=== PATIENT | female | born 1990 | race Two or more races ===

== ENCOUNTER 2024-08-08 15:25 | Emergency (ER) | payer MEDICAID, SELFPAY ==
[2024-08-08 15:31] VITALS: BP 158/73; PULSE 104; RESP 17; TEMP 36.8; O2SAT 96
--- NOTE | 2024-08-08 15:38 | EDNOTE_ITS ---
Nausea/Vomit./Diarrhea-RME/HPI General Chief complaint: Abdominal Pain Stated complaint: ABDOMINAL PAIN Time Seen by Provider: 08/08/24 15:27 Arrival date/time: 08/08/24 15:25 RME / HPI RME / HPI Narrative: DR. ROSAS MAIN ED EVALUATION: 34 year old female with past medical history significant for x2 sections presents to the Emergency Department with complaints of nausea, vomiting, left flank pain and suprapubic pain that radiates down to her groin area. Pain is rated severe and described as aching. Patient also reports that she has some vaginal bleed, no rectal bleed. Related Data Allergies Allergy/AdvReac Type Severity Reaction Status Date / Time No Known Allergies Allergy Verified 08/08/24 15:54 Review of Systems Review of Systems Systems Reviewed: All systems reviewed, normal except as documented Narrative Review of Systems: GEN: No fever, no chills, no weight loss EYES: No discharge, no visual changes, no pain HEENT: No ear pain, no congestion, no sore throat PULM: No shortness of breath, no cough, no congestion CV: No chest pain, no dyspnea on exertion, no palpitations GI: + nausea, + vomiting, no diarrhea, + left flank pain, + suprapubic pain, no constipation + vaginal bleed : No frequency, no urgency and no dysuria MUSC/SKEL: No joint pain, no back pain SKIN: No rash PSYCH: No hallucinations, no depression HEME/LYMPH: No easy bleeding or bruising tendencies NEURO: No weakness, no headache Past Medical History Surgical History SURGICAL: Positive Section (x2) Social History SMOKING STATUS: Never smoker SUBSTANCE USE: does not use ALCOHOL: Never ED Exam Narrative Physical exam: Physical Exam: General: The vital signs were reviewed. Patient is actively vomiting in the ambulance bay writhing on the side of the ambulance bay gurney uncomfortable does not want to sit down later she is in room 19 doing the same thing she appears nauseated and in severe pain. The patient is non-toxic, in no apparent distress and appears healthy with a patent airway, no respiratory distress and has no apparen t circulatory problems. Head & Scalp: Normocephalic, atraumatic. Face: Appears normal and is without lesions, deformity. Ears: Left external pinna appears normal. Right external pinna appears normal. Eyes: The sclera is anicteric. No obvious photophobia. The Left and Right Orbit/Lid/Conjunctiva appears normal without swelling, discoloration or injection. Nose: The nose is without deformity, discharge or tenderness; Throat: Appears normal. The mucous membranes are pink and moist without exudates, redness or mass seen. The tongue appears normal. Neck: The neck is supple and no apparent mass or adenopathy. Chest: The chest wall is normal in size and symmetry and has no chest wall tenderness or crepitus. The patient displays normal ventilator effort without retractions, accessory muscle use and has adequate air movement bilaterally with no wheezes and no rales. Cardiovascular: Regular rate and rhythm; No murmurs, rubs, or gallops; Gastrointestinal: The abdomen appears normal. No obvious hernias or mass. The abdomen is soft and benign, non-distended, with no pain, no guarding and no rebound tenderness. Bowel sounds are present and normal sounding. No CVA tenderness. Genitourinary: Back/Spine: Normal inspection Extremities/Musculoskeletal/lymphatic: The bilateral upper and lower extremities are warm. There is no evidence of arterial insufficiency. There is no evidence of venous insufficiency/edema. The patient spontaneously moves bilateral upper and lower extremities with no pain and no limitation of movement. There is no apparent, injury or trauma. Skin: The skin is warm, dry and intact. No rashes. No petechia. No purpura. No abnormal bruising. The color is appropriate with no cyanosis. Mental status/Psychiatric: Mental status is appropriate for age. The patient has no apparent delusions, visual hallucinations, no apparent audible hallucinations. The patient has no apparent suicidal thoughts/ideation and no apparent homicidal thoughts/ideation. Neurological: The patient is awake, alert, interactive, cordial, cooperative and is oriented to name and situation. The patient follows commands and answers historical question with no impairment. There is no visual disturbance apparent. The pupils are equal and reactive bilaterally with normal eye movements and no diplopia The bilateral upper and lower extremities have normal strength, normal range of motion and normal functioning. The gait, station and balance appear to be baseline with no acute change Course Quality Measures none Orders Category Date Time Status NPO NEEDED Care 08/08/24 15:28 Active NPO NOW Care 08/08/24 15:28 Active Diet NPO (NOW) Diet 08/08/24 15:[address] abdomen pelvis wo con Stat Exams 08/08/24 17:56 Ordered B-Type Natriuretic Peptide Stat Lab 08/08/24 15:39 Completed CBC Stat Lab 08/08/24 15:39 Completed Comprehensive Metabolic Panel Stat Lab 08/08/24 15:39 Completed HCG Qualitative,Urine Stat Lab 08/08/24 16:10 Completed Lactate (Lactic Acid) Stat Lab 08/08/24 15:39 Completed Lipase Stat Lab 08/08/24 15:39 Completed Troponin I Stat Lab 08/08/24 15:39 Completed Urinalysis Stat Lab 08/08/24 16:10 Completed Urinalysis, C/S if Indicated Stat Lab 08/08/24 16:10 Completed Urine Culture Stat Lab 08/08/24 16:10 Received Ketorolac Inj [Toradol Inj] Med 08/08/24 16:45 Discontinued 30 mg IVP X1 ONE Metoclopramide Inj [Reglan Inj] Med 08/08/24 17:39 Discontinued 10 mg IVP X1 ONE Morphine Inj Med 08/08/24 17:39 Discontinued 4 mg IVP X1 ONE Ondansetron Inj [Zofran Inj] Med 08/08/24 15:28 Discontinued 4 mg IV X1 ONE Sodium Chloride 0.9% 1000 ml [Ns] 2,000 ml Med 08/08/24 15:28 Discontinued IV 2,000 mls/hr Vital Signs Vital signs: Vital Signs Temperature 98.2 F 08/08/24 15:31 Pulse Rate 104 H 08/08/24 15:31 Respiratory Rate 17 08/08/24 15:31 Blood Pressure 158/73 H 08/08/24 15:31 Pulse Oximetry (%) 96 08/08/24 15:31 Oxygen Delivery Method Room Air 08/08/24 15:31 Nausea/Vomiting/Diarrhea MDM Narrative MDM Narrative:: I, Ria Bolanos am scribing for and in the presence of Dr. Rosas. Patient presents with severe pain flank pain but also complains of mid abdominal pain and writhing of vomiting. And to be EMS she reported left flank pain later on she reports pain over her recent section scar uncertain how to relate these 2 together. Medical workup reveals urinalysis revealed 1253 red cells 54 white cells with a specific area of 1026 CHEM panel reveals sodium 142 potassium 4.0 chloride 107 CO2 23.9 BUN 12 creatinine 0.9 anion gap is normal at 11 lactic acid was 1.8 AST ALT and bilirubin was normal. Troponin and BNP were negative. White cell count came back at 12.2 hemoglobin of 13.1 MCV of 76 consistent with a microcytic indices. Patient sounds like it looks like she has a kidney stone uncertain what the previous scar discomfort is from but she says that it has been there for a while. Will get a noncontrast CT of her abdomen. Patient be signed out to the oncoming doctor at 1800 hrs. to follow-up on the CT and dispo accordingly. Patient data External records reviewed:: EMS form Clinical information provided by:: patient and EMS Social determinants that could affect healthcare access:: none Patient has the following chronic illnesses:: x2 sections How is presenting disease/condition affected by chronic disease/condition?: exacerbated by Evaluation data The following diagnostics were reviewed and interpreted by me:: lab results Lab and/or radiology exams considered but not ordered:: none Interpretation Summary: See above under MDM narrative. Medications / Prescriptions Medications / Prescriptions considered but not ordered:: none Medication administrations:: Medication Administration History Discontinued Medications Sodium Chloride (Ns) 2,000 mls @ 2,000 mls/hr IV .Q1H ONE Stop: 08/08/24 16:27 Last Infusion: 08/08/24 17:31 Dose: Infused Documented By: Admin: 08/08/24 16:26 Dose: 2,000 mls/hr Documented By: CHADD Ketorolac Tromethamine (Ketorolac Inj 30 Mg/Ml Vial) 30 mg IVP X1 ONE Stop: 08/08/24 16:46 Last Admin: 08/08/24 16:56 Dose: 30 mg Documented By: JOSEPH Metoclopramide HCl (Metoclopramide Inj 5 Mg/Ml Vial 2 Ml) 10 mg IVP X1 ONE; Protocol Stop: 08/08/24 17:40 Last Admin: 08/08/24 17:53 Dose: 10 mg Documented By: JOSEPH Morphine Sulfate (Morphine Sulf Inj 10 Mg/Ml Vial) 4 mg IVP X1 ONE Stop: 08/08/24 17:40 Last Admin: 08/08/24 17:54 Dose: 4 mg Documented By: JOSEPH Ondansetron HCl (Ondansetron Inj 2 Mg/Ml Inj 2 Ml) 4 mg IV X1 ONE; Protocol Stop: 08/08/24 15:29 Last Admin: 08/08/24 16:26 Dose: 4 mg Documented By: CHADD see above Consultations Consultation(s) initiated? (list below): No Diagnosis Nausea Differential Diagnosis: gastroenteritis, dehydration and other (abdominal pain) Most likely diagnosis given after review of the tests above:: Hematuria severe left flank pain most likely a renal stone. Patient also has some complaint of midline abdominal pain related to her previous scar from 2 months ago uncertain if that means anything as it is apparently 2 months old care to the oncoming doctor. Admission Indicated Admission indicated?: not indicated Admission Request Was there a request for admission?: No Disposition Plan Disposition Plan: other (specify) (Pending final disposition) Discharge Plan Prescriptions/Referrals Referrals: Aneesh Cantrell MD [Primary Care Provider] - In 1 week Problem List Clinical Impression: Acute left flank pain, Nausea & vomiting, Hematuria Patient/Caregiver Discharge Instructions Print Language: Cameroonian
[2024-08-08 15:48] VITALS: PULSE 84; RESP 20; O2SAT 98
[2024-08-08 15:50] LABS: Lactate (Lactic Acid) 1.8 mMol/L (0.4-2.0)
[2024-08-08 15:52] VITALS: BMI 41.3
[2024-08-08 15:54] LABS: Basophils % (Auto) 0 % (0-2.5); Eosinophils # (Auto) 0.1 Thou/mm3 (0.0-0.5); Eosinophils % (Auto) 1 % (0-10); Hematocrit 37.8 % (36.0-46.0); Hemoglobin 13.1 g/dL (12.0-16.0); Immature Granulocytes % (Auto) 0 % (0-0); Immature Granulocytes Auto 0.05 Thou/mm3 (0.00-0.00); Lymphocytes # (Auto) 2.1 Thou/mm3 (1.0-4.8); Lymphocytes % (Auto) 17 % (10-50); Mean Corpuscular HGB Conc 34.7 g/dl (31.0-37.0); Mean Corpuscular Hemoglobin 26.3 pg (25.0-35.0); Mean Corpuscular Volume 76 fL (80-100); Monocytes # (Auto) 0.6 Thou/mm3 (0.0-0.8); Monocytes % (Auto) 5 % (0-12); Neutrophils # (Auto) 9.4 Thou/mm3 (1.8-7.7); Neutrophils % (Auto) 77 % (37-80); Nucleated Red Blood Cell % 0 /100 WBC (0); Platelet Count 209 Thou/mm3 (140-440); RDW Standard Deviation 53.1 fL (36.4-46.3); Red Blood Count 4.99 Miln/mm3 (4.00-5.20); White Blood Count 12.2 Thou/mm3 (3.6-11.0)
--- NOTE | 2024-08-08 16:18 | PC.NURSE ---
patient requesting pain medication for 10/10 pain to left flank and lower abd. Dr. Garcia made aware, no new orders received.
[2024-08-08 16:20] VITALS: BP 160/103; PULSE 86; RESP 18; TEMP 37.2; O2SAT 99
[2024-08-08 16:21] LABS: B-Type Natriuretic Peptide < 20 pg/mL (0-100)
[2024-08-08 16:22] LABS: Alanine Aminotransferase 31 U/L (10-49); Albumin, Serum 5.1 gm/dL (3.5-5.0); Albumin/Globulin Ratio 1.8 (1.2-2.2); Alkaline Phosphatase 128 U/L (46-116); Anion Gap 11 (7-16); Aspartate Amino Transferase 25 U/L (0-34); BUN/Creatinine Ratio 13 Ratio (12-20); Bilirubin,Total 0.4 mg/dL (0.3-1.2); Blood Urea Nitrogen 12 mg/dL (9-23); Calcium 9.2 mg/dL (8.3-10.6); Calcium (Corrected) 9.2 mg/dL (8.5-10.1); Carbon Dioxide 23.7 mMol/L (20.0-31.0); Chloride 107 mMol/L (98-107); Creatinine (Component) 0.9 mg/dL (0.6-1.3); Estimated Creatinine Clearance 73.9 mL/min (>60); Globulin 2.8 gm/dL (2.3-3.5); Glucose 141 mg/dL (74-106); Lipase 31 U/L (12-53); Osmolality,Calculated 284 (275-295); Sodium 142 mMol/L (136-145); Total Protein 7.9 gm/dL (5.7-8.2); Troponin I < 0.002 ng/mL (0.0-0.045); eGFR > 60 See Note
[2024-08-08] MEDS: SODIUM CHLORIDE 0.9% 1000 ML 2,000 ML 2000 ML IV (16:26)
[2024-08-08] MEDS: ONDANSETRON INJ 2 MG/ML INJ 2 ML 4 MG IV (16:26)
[2024-08-08 16:36] LABS: Collection Type, Urine Catheter
[2024-08-08 16:55] LABS: HCG Qualitative,Urine Negative
[2024-08-08] MEDS: KETOROLAC INJ 30 MG/ML VIAL IVP (16:56)
[2024-08-08 17:17] LABS: Bacteria,Urine Rare; Bilirubin,Urine Negative (Negative); Blood,Urine 3+ (Negative); Color,Urine Yellow (Lt Yel-Yel); Glucose, Urine Negative (Negative); Ketones,Urine Negative (Negative); Leukocyte Esterase,Urine Positive (Negative); Nitrite,Urine Positive (Negative); PH,Urine 6.5 (5.0-7.0); Protein,Urine 1+ (Neg - Trace); RBC,Urine 1253 /hpf (0-3); Specific Gravity,Urine 1.026 (1.001-1.035); Squamous Epithelial Cell,Urine 2 /hpf (0-5); Urobilinogen,Urine Negative mg/dL (0.0-1.0); WBC,Urine 54 /hpf (0-5)
[2024-08-08 17:19] LABS: Clarity,Urine Hazy (Clear/Hazy); Culture Indicated,Urine Yes
--- NOTE | 2024-08-08 17:39 | PC.NURSE ---
Received verbal order for 10mg Reglan IV and 4 mg morphine IV
[2024-08-08] MEDS: METOCLOPRAMIDE INJ 5 MG/ML VIAL 2 ML 10 MG IVP (17:53)
[2024-08-08] MEDS: MORPHINE SULF INJ 10 MG/ML VIAL 4 MG IVP (17:54)
--- NOTE | 2024-08-08 17:56 | XR_ITS ---
Examination: CT abdomen and pelvis without contrast. Coronal 3-D reconstructions. Sagittal 2-D reconstructions. Date and time of exam:August 08, 2024 1832 hours INDICATIONS: Onset left flank pain and hematuria today CTDI: vol (mGy): 6.99 DLP: (mGycm): 350 Technique: Axial images of the abdomen have been obtained, 3 mm slice thickness Intravenous contrast material has not been administered. Low dose protocols were performed. One or more of the following dose reduction techniques were used; automated exposure control, adjustment of the mA and/or KV according to patient size, use of iterative reconstruction technique. Findings: No focal liver or splenic lesions No gallstones No pancreatic mass Moderate left hydronephrosis secondary to 3 mm and 6 mm distal left ureteral calculi No bowel obstruction Normal appendix No bladder mass or bladder calculi, minimal thickening of gallbladder wall Moderate osteopenia IMPRESSION: Moderate left hydronephrosis secondary to 3 mm, 6 mm distal left ureteral calculi
[2024-08-08 18:12] VITALS: BP 134/83; PULSE 96; RESP 18; TEMP 37.8; O2SAT 100
--- NOTE | 2024-08-08 18:42 | EDNOTE_ITS ---
Emergency Room Addendum <Brina Ferguson - Last Filed: 08/08/24 21:29> Addendum Narrative: 1800: Care assumed from Dr. Garcia (emergency physician). Past medical, surgical, social and family history reviewed. Vitals and home medications reviewed. Results and treatment plan discussed. I will assume the care of the patient at this time and will follow the patient, pending abdomen/pelvis CT w/o contrast. Please refer to the emergency department record for history and examination. Patient in no acute distress. Not febrile prior to discharge. IMPRESSION: Moderate left hydronephrosis secondary to 3 mm, 6 mm distal left ureteral calculi 2100: Shared decision making. The patient can start Flomax. She is aware that she does not have to pump and dump. Otherwise healthy child at home. Strict return precautions were given and understood and the patient will follow with her primary care in the next 48 to 72 hours. She will need referral to urology. <Charisse Morrow MD - Last Filed: 08/08/24 21:28> Addendum Narrative: 1800: Care assumed from Dr. Garcia (emergency physician). Past medical, surgical, social and family history reviewed. Vitals and home medications reviewed. Results and treatment plan discussed. I will assume the care of the patient at this time and will follow the patient, pending abdomen/pelvis CT w/o contrast. Please refer to the emergency department record for history and examination. Patient in no acute distress. Not febrile prior to discharge. IMPRESSION: Moderate left hydronephrosis secondary to 3 mm, 6 mm distal left ureteral calculi 2100: Shared decision making. The patient can start Flomax. She is aware that she does not have to pump and dump. Otherwise healthy child at home. Strict return precautions were given and understood and the patient will follow with her primary care in the next 48 to 72 hours. She will need referral to urology. <Tressa Hoover - Last Filed: 08/08/24 22:40> Addendum Narrative: 1800: Care assumed from Dr. Garcia (emergency physician). Past medical, surgical, social and family history reviewed. Vitals and home medications reviewed. Results and treatment plan discussed. I will assume the care of the patient at this time and will follow the patient, pending abdomen/pelvis CT w/o contrast. Please refer to the emergency department record for history and examination. Patient in no acute distress. Not febrile prior to discharge. 2100: Shared decision making. The patient can start Flomax. She is aware that she does not have to pump and dump. Otherwise healthy child at home. Strict return precautions were given and understood and the patient will follow with her primary care in the next 48 to 72 hours. She will need referral to urology. RADIOLOGY RESULTS: [facility] Report Signed Patient: OSMAN JACOBSEN Record#: [id number] Birthdate: 1990 Age/Sex: 34 / F [facility] Attending Dr: Ordering Physician: Rob Garcia MD Date of Service: 08/08/24 Procedure(s): CT abdomen pelvis wo con Accession Number(s): [id number] cc: Aneesh Cantrell MD; Rob Garcia MD; Maxwell Cherry MD~ Examination: CT abdomen and pelvis without contrast. Coronal 3-D reconstructions. Sagittal 2-D reconstructions. Date and time of exam:August 08, 2024 1832 hours INDICATIONS: Onset left flank pain and hematuria today CTDI: vol (mGy): 6.99 DLP: (mGycm): 350 Technique: Axial images of the abdomen have been obtained, 3 mm slice thickness Intravenous contrast material has not been administered. Low dose protocols were performed. One or more of the following dose reduction techniques were used; automated exposure control, adjustment of the mA and/or KV according to patient size, use of iterative reconstruction technique. Findings: No focal liver or splenic lesions No gallstones No pancreatic mass Moderate left hydronephrosis secondary to 3 mm and 6 mm distal left ureteral calculi No bowel obstruction Normal appendix No bladder mass or bladder calculi, minimal thickening of gallbladder wall Moderate osteopenia IMPRESSION: Moderate left hydronephrosis secondary to 3 mm, 6 mm distal left ureteral calculi Dictated By: Maxwell Cherry MD Signed By: <Electronically signed by Maxwell Cherry MD in [place]> 08/08/24 0883
[2024-08-08 21:06] VITALS: BP 124/82; PULSE 98; RESP 18; TEMP 37.3; O2SAT 98
[2024-08-08] MEDS: TAMSULOSIN HCL 0.4 MG CAPSULE PO (21:17)
[2024-08-08] MEDS: ACETAMINOPHEN 500 MG TABLET 1000 MG PO (21:17)
== END 2024-08-08 21:27 | disposition home or self-care (01) ==
PROVIDERS: Emergency Medicine; Emergency Provider Emergency Medicine; PCP Obstetrics & Gynecology
DX: R11.2 Nausea with vomiting, unspecified (principal); R10.9 Unspecified abdominal pain; R31.9 Hematuria, unspecified
CPT/HCPCS: 36415; 74176; 80053; 81001; 81025; 83605; 83690; 83880; 84484; 85025; 87077; 87086; 87186; 96361; 96374; 96375; 99284; J1885; J2270; J2405; J2765; J7030; A9270

== ENCOUNTER 2024-08-10 20:39 | Emergency (ER) | payer MEDICAID, SELFPAY ==
[2024-08-10 20:51] VITALS: BMI 32.3
[2024-08-10 20:53] VITALS: BP 105/65; PULSE 143; RESP 19; TEMP 37.8; O2SAT 95
--- NOTE | 2024-08-10 21:08 | EKG_ITS ---
[facility] Test Date: 2024-08-10 Pat Name: OSMAN JACOBSEN Department: Room: - Gender: Female [employer]: : 1990 Requested By: Charisse Lemus Order Number: [id number] Reading MD: Charisse Lemus Measurements Intervals [place] Rate: 133 P: 53 NC: 139 QRS: 70 QRSD: 96 T: 46 QT: 309 QTc: 460 Interpretive Statements SINUS TACHYCARDIA ABNORMAL RHYTHM ECG No previous ECG available for comparison /store/S0/[id number]/ecg/[id number].pdf
--- NOTE | 2024-08-10 21:08 | XR_ITS ---
Examination: AP chest single view Technique: AP portable semiupright chest single view Date and time: August 10, 2024 2130 hours INDICATIONS: Sepsis limited today. FINDINGS: Normal heart size. Lungs are clear. Osseous structures are intact IMPRESSION: No pneumonia identified
[2024-08-10 21:10] VITALS: BMI 26.6
[2024-08-10 21:16] VITALS: PULSE 143
--- NOTE | 2024-08-10 21:18 | PC.NURSE ---
in and out not done pt urinated on own
[2024-08-10 21:19] VITALS: PULSE 135; PULSE 14; RESP 20; RESP 94; O2SAT 94
[2024-08-10 21:29] LABS: Collection Type, Urine Clean Catch; Squamous Epithelial Cell,Urine 0 /hpf (0-5)
[2024-08-10 21:31] LABS: Lactate (Lactic Acid) 2.7 mMol/L (0.4-2.0)
[2024-08-10 21:35] LABS: Basophils # (Auto) 0.1 Thou/mm3 (0.0-0.2); Basophils % (Auto) 1 % (0-2.5); Eosinophils % (Auto) 0 % (0-10); Hematocrit 33.8 % (36.0-46.0); Hemoglobin 12.3 g/dL (12.0-16.0); Immature Granulocytes % (Auto) 2 % (0-0); Immature Granulocytes Auto 0.29 Thou/mm3 (0.00-0.00); Lymphocytes # (Auto) 0.6 Thou/mm3 (1.0-4.8); Lymphocytes % (Auto) 4 % (10-50); Mean Corpuscular HGB Conc 36.4 g/dl (31.0-37.0); Mean Corpuscular Hemoglobin 26.7 pg (25.0-35.0); Mean Corpuscular Volume 73 fL (80-100); Monocytes # (Auto) 0.3 Thou/mm3 (0.0-0.8); Monocytes % (Auto) 2 % (0-12); Neutrophils # (Auto) 12.3 Thou/mm3 (1.8-7.7); Neutrophils % (Auto) 91 % (37-80); Nucleated Red Blood Cell % 0 /100 WBC (0); RDW Standard Deviation 52.4 fL (36.4-46.3); Red Blood Count 4.61 Miln/mm3 (4.00-5.20); White Blood Count 13.5 Thou/mm3 (3.6-11.0)
[2024-08-10 21:44] LABS: Bacteria,Urine 1+; Bilirubin,Urine Negative (Negative); Blood,Urine 2+ (Negative); Color,Urine Yellow (Lt Yel-Yel); Glucose, Urine Negative (Negative); Hyaline Casts,Urine 2 /hpf (0-1); Ketones,Urine Negative (Negative); Leukocyte Esterase,Urine Positive (Negative); Nitrite,Urine Negative (Negative); PH,Urine 5.5 (5.0-7.0); Protein,Urine 2+ (Neg - Trace); RBC,Urine 69 /hpf (0-3); Specific Gravity,Urine 1.027 (1.001-1.035); Transitional Epi Cells,Urine 1 /hpf (0-5); Urobilinogen,Urine Negative mg/dL (0.0-1.0); WBC,Urine 1833 /hpf (0-5)
--- NOTE | 2024-08-10 21:45 | EDNOTE_ITS ---
ED Abdominal Pain RME/HPI General Chief Complaint: Abdominal Pain Stated complaint: WEAKNESS Time seen by provider: 08/10/24 20:59 Arrival date/time: 08/10/24 20:39 Source: patient and RN notes reviewed Limitations: no limitations and language barrier (Please see nurses notes on air director issues.) RME / HPI RME / HPI narrative: Dr. Jacob's Main ED Evaluation: 34yo female JORDON from home presents to the ED for a chief complaint of diffuse abdominal pain. Patient states she started having diffuse abdominal pain today at 1400, reporting it's been constant. Patient endorses having N/V/D, a fever, chest pain when taking a deep breath, and feeling generally weak since yesterday. Patient denies any shortness of breath or any other associated symptoms. Of note, patient gave on 05/30/24. NKA. HUTTON complaint: abdominal pain Onset (ago): hour(s) (6 hours) Consistency: intermittent Severity: moderate Severity scale (1-10): 3 Quality: cramping Radiation: none Migration to: no migration Relieving factors: nothing Exacerbating factors: nothing Associated symptoms: nausea and vomiting (See HPI) Related Data Previous Rx's ?Medication ?Instructions ?Recorded acetaminophen 325 mg tablet 325 mg PO Q6H pain 7 days #28 tabs 08/08/24 (Tylenol) ibuprofen 200 mg capsule (Motrin 600 mg (3 x 200 mg) P O Q6H PRN 08/08/24 IB) pain (scale score 1-3) 3 day s #20 caps tamsulosin 0.4 mg capsule (Flomax) 0.4 mg PO QDAY 4 da ys #4 caps 08/08/24 Allergies Allergy/AdvReac Type Severity Reaction Status Date / Time No Known Allergies Allergy Verified 08/10/24 21:06 Review of Systems Review of Systems Systems Reviewed: All systems reviewed, normal except as documented Past Medical History Past Medical History CARDIAC: Negative Congestive Heart Failure RESPIRATORY: Negative Chronic Obstructive Pulmonary Disease (COPD) GENITOURINARY: Negative Renal Disease ENDOCRINE: Negative Diabetes Mellitus Type 1 or Diabetes Mellitus Type 2 HEMATOLOGIC: Positive Anemia Surgical History SURGICAL: Positive Section Social History SMOKING STATUS: Never smoker SUBSTANCE USE: does not use ED Exam Narrative Physical exam: Patient sitting in bed, no acute distress. Not diaphoretic. General Limitations: Present no limitations and language barrier (Please see nurses notes on air director issues.) General appearance: Present alert and in no apparent distress; Absent lethargic or cachectic Head Head exam: Present atraumatic Eye Eye exam: Present normal appearance and EOMI ENT ENT exam: Present normal exam, normal oropharynx and mucous membranes dry Neck Neck exam: Present normal inspection, full ROM and trachea midline; Absent meningismus Chest Chest inspection: Present normal inspection and symmetric chest wall rise Respiratory Respiratory exam: Present normal lung sounds bilaterally Cardiovascular Cardiovascular exam: Present regular rate, normal rhythm, tachycardia and normal heart sounds; Absent systolic murmur or diastolic murmur Abdominal Exam Abdominal exam: Present soft and normal bowel sounds; Absent distention, tenderness, guarding or rebound Extremities Exam Extremities exam: Present normal inspection and full ROM Back Exam Back exam: Present normal inspection and full ROM; Absent CVA tenderness (R) or CVA tenderness (L) Neurological Exam Neurological exam: Present alert, oriented X3 and CN II-XII intact; Absent motor sensory deficit Psychiatric Psychiatric exam: Present normal affect and normal mood Skin Skin exam: Present warm, dry, intact and normal color; Absent diaphoresis, erythema, pallor or mottled Course Quality Measures Possible source: GI tract/intra-abdominal and genitourinary Blood cultures ordered: yes Antibiotic ordered: Yes Pertinent labs: 08/10/24 08/11/24 21:16 00:30 Lactic Acid 2.7 H mMol/L 2.2 H mMol/L (0.4-2.0) (0.4-2.0) Procalcitonin > 50.00 H ng/ml (0.0-0.49) sepsis Orders Category Date Time Status Bedside COVID-19 Antigen Test NOW Care 08/10/24 21:07 Active Bedside Influenza A&B Antigen Test NOW Care 08/10/24 21:[address] Screening NOW Care 08/10/24 23:03 Active Yard Specialist STAT Care 08/10/24 21:08 Active Continuous Pulse Oximetry STAT Care 08/10/24 21:08 Completed EKG (ED ONLY) *Do not use* NOW Care 08/10/24 21:08 Completed Insert IV NOW Care 08/10/24 21:08 Active Insert IV NOW Care 08/11/24 01:44 Completed NPO STAT Care 08/10/24 21:08 Active Strict Intake and Output Routine Care 08/10/24 21:[address] chest abdomen pelvis wo Stat Exams 08/10/24 23:24 Taken EKG (ED Only) Stat Exams 08/10/24 21:08 Ordered XR chest 1V SEPSIS PROTOCOL Stat Exams 08/10/24 21:08 Completed B-Type Natriuretic Peptide Stat Lab 08/10/24 21:16 Completed BMP [Basic Metabolic Panel] Stat Lab 08/11/24 00:30 Completed Blood Culture (Lab) Stat Lab 08/10/24 21:12 Received CBC Stat Lab 08/10/24 21:16 Completed Comprehensive Metabolic Panel Stat Lab 08/10/24 21:16 Completed HCG Qualitative,Urine Stat Lab 08/10/24 21:14 Completed LDH (Lactate Dehydrogenase) Stat Lab 08/10/24 21:16 Completed Lactate (Lactic Acid) Stat Lab 08/10/24 21:16 Completed Lactic Acid, 3 HR Stat Lab 08/11/24 00:30 Completed Lipase Stat Lab 08/10/24 21:16 Completed Magnesium Stat Lab 08/10/24 21:16 Completed Partial Thromboplastin Time Stat Lab 08/10/24 21:16 Completed Path Review Blood Smear Stat Lab 08/10/24 21:16 Completed Phosphorous Stat Lab 08/10/24 21:16 Completed Procalcitonin Stat Lab 08/10/24 21:16 Completed Prothrombin Time with INR Stat Lab 08/10/24 21:16 Completed Troponin I Stat Lab 08/10/24 21:16 Completed Troponin I Stat Lab 08/11/24 00:30 Completed Urinalysis Stat Lab 08/10/24 21:14 Completed Urine Culture Stat Lab 08/10/24 21:14 Received Acetaminophen Tab [Tylenol ES Tab] Med 08/10/24 22:19 Discontinued 1,000 mg PO X1 ONE Acetaminophen Tab [Tylenol ES Tab] Med 08/11/24 02:28 Discontinued 1,000 mg PO X1 ONE Meropenem Inj [Merrem Inj] 1,000 mg Med 08/11/24 01:30 Discontinued SODIUM CHLORIDE 0.9% (Popper) [Ns 0.9% (P)] 50 ml IV X1 Meropenem Inj [Merrem Inj] 2,000 mg Med 08/11/24 06:00 Pending SODIUM CHLORIDE 0.9% (Popper) [Ns 0.9% (P)] 50 ml IV Q8HR Morphine Inj Med 08/10/24 23:27 Discontinued 2 mg IVP X1 ONE Morphine Inj Med 08/11/24 00:04 Discontinued 2 mg IVP X1 ONE POTASSIUM CHL 10 mEq IVPB [Kcl Ivpb] Med 08/10/24 23:49 Discontinued 10 meq in 100 ml IV X1 Sodium Chloride 0.9% 1000 ml [Ns] 1,000 ml Med 08/11/24 01:44 Active IV 250 mls/hr Sodium Chloride 0.9% 1000 ml [Ns] 1,000 ml Med 08/10/24 23:17 Discontinued IV 999 mls/hr Sodium Chloride 0.9% 1000 ml [Ns] 1,796 ml Med 08/10/24 22:17 Discontinued IV 1,796 mls/hr Sodium Chloride 0.9% 500 ml [Ns] 500 ml Med 08/11/24 03:56 Discontinued IV 999 mls/hr Sodium Chloride 0.9% 500 ml [Ns] 500 ml Med 08/11/24 05:37 Active IV 999 mls/hr Vancomycin Inj 1,000 mg Med 08/11/24 09:00 Pending Sodium Chloride 0.9% 250 ml [Ns] 250 ml IV BID Vancomycin Inj 1,000 mg Med 08/11/24 04:30 Active Sodium Chloride 0.9% 250 ml [Ns] 250 ml IV X1 cefTRIAXone/D5w 1gm IV premix [Rocephin/D5w 1gm IV Med 08/10/24 23:24 Discontinued premix] 1 gm in 50 ml IV X1 Oxygen Delivery NOW RT 08/10/24 21:08 Active Vital Signs Vital signs: Vital Signs Temperature 100.1 F 08/10/24 20:53 Pulse Rate 143 H 08/10/24 20:53 Respiratory Rate 19 08/10/24 20:53 Blood Pressure 105/65 08/10/24 20:53 Pulse Oximetry (%) 95 08/10/24 20:53 Oxygen Delivery Method Room Air 08/10/24 20:53 Abdominal Pain MDM MDM Narrative MDM Narrative:: Scribe Attestation: 08/10/24 Tressa Lim am scribing for and in the presence of Dr. Jacob. 34-year-old female presenting with suprapubic abdominal pain, noted to be septic, immediately placed into a bed and started on 30 mL/kg bolus normal saline. She was treated with IV ceftriaxone. Initial CT was going to be ordered with IV contrast however the patient's creatinine came back abnormal at 3.2. A CT without contrast is ordered which shows multiple nonobstructing stones however the patient has left hydro ureter nephrosis with some air Cabrera in the left calyx. 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 The patient was added antibiotics to include meropenem and vancomycin. Otherwise there is no evidence of abscess. The patient remains awake and talking in full sentences without meningeal signs. After third liter of fluid the patient's blood pressure is 105/72. I will not be able to give her Toradol for her fever but a second dose of Tylenol is given. Will initiate ice packs if needed to control the fever. Patient has been pain-free after a total of 4 mg of morphine were given. Patient states that she was diagnosed with kidney stone 48 hours and took Flomax at home without improvement. Patient presents with subjective fever at home and in the emergency department found to have a temperature please put him at 2 L can you please go do so without oxygen 2105: Sepsis alert made at this time are congruent with ED Adult Sepsis Order List. Re-evaluation is to be completed. 2303: CTA of the chest ordered to r/o PE. 2316: Creatinine is 3.3. Additional 1L NS IVF ordered then will recheck BMP. CT chest abdomen pelvis without contrast ordered. Repeat blood pressure is 114/70. 2321: NS IVF infused. 2351: Sepsis reassessment performed consisting of lab review, vitals, physical exam including auscultation of heart, lungs, and visual evaluation of capillary refills, mucosal membranes and extremities. Patient met SIRS criteria. Lactic, WBC, and pro wilfrid are all elevated. Reassessment complete, patient is septic. 0130: CT chest abdomen pelvis consistent with infected kidney stone and emphysematous pyelonephritis. Will need to transfer the patient to a higher [id number], as we do not have urology available at our facility. Patient is currently pain-free. Blood pressure is 110 systolically. 0352: Spoke with [facility]'s transfer center. They decline the patient for transfer due to not having urology available. 0511: Spoke with [facility]'s transfer. Awaiting callback at this time. 0600: Care signed out to Dr. Anderson (emergency physician). Past medical, surgical, social and family history reviewed. Vitals and home medications reviewed. Results and treatment plan discussed. They will assume the care of the patient at this time and will follow the patient, pending transfer for urology. 0610:Discussed with oncoming physician would consider transfer since patient may need percutaneous drainage if not improved. Patient data External records reviewed:: [facility] previous records (Per chart review, patient was seen here on 08/08/24 for flank pain.) Clinical information provided by:: patient Social determinants that could affect healthcare access:: none Patient has the following chronic illnesses:: none How is presenting disease/condition affected by chronic disease/condition?: no chronic disease Evaluation data The following diagnostics were reviewed and interpreted by me:: lab results, radiology exam(s) and EKG tracing(s) Lab and/or radiology exams considered but not ordered:: none Interpretation Summary: WBC 13.5, Lactic Acid is elevated at 2.7, Potassium 3.1, Creatinine 3.3, BUN 48, BNP is normal, Troponin is elevated at 0.139, Lipase is normal, Procalcitonin is greater than 50, HCG is negative, UA is positive for a UTI, according to my interpretation. Repeat lactic acid is 2.2, Repeat Potassium 3.6, Repeat Creatinine 2.5, Repeat BUN 42, Repeat Troponin 0.123. [facility] Report Signed Patient: OSMAN JACOBSEN Record#: [id number] Birthdate: 1990 Age/Sex: 34 / F Location: [facility] Attending Dr: Ordering Physician: Charisse Morrow MD Date of Service: 08/10/24 Procedure(s): XR chest 1V SEPSIS PROTOCOL Accession Number(s): [id number] cc: Maxwell Cherry MD; NO PRIMARY/FAMILY,PHYSICIAN; Charisse Morrow MD~ Examination: AP chest single view Technique: AP portable semiupright chest single view Date and time: August 10, 2024 2130 hours INDICATIONS: Sepsis limited today. FINDINGS: Normal heart size. Lungs are clear. Osseous structures are intact IMPRESSION: No pneumonia identified Dictated By: aMxwell Cherry MD Signed By: <Electronically signed by Maxwell Cherry MD in OV> 08/10/242136 [place] Preliminary Report Draft Patient: OSMAN JACOBSEN Record#: [id number] Birthdate: 1990 Age/Sex: 34 / F Location: [facility] Attending Dr: Ordering Physician: Date of Service: Procedure(s): Accession Number(s): cc: ~ CT scan of the chest, abdomen and pelvis without intravenous contrast (axial sections with sagittal and coronal reformats) August 11, 2024 0003 hours Clinical History: Sepsis, possible renal stone, acute renal failure No prior study is available for comparison. Findings: Subpleural calcified granulomas are seen in left lower lobe. Mild subpleural scarring with bibasilar dependent atelectasis is present, left greater than right. No evidence of focal consolidation, pleural effusion or pneumothorax. The mediastinum demonstrates no evidence of mass. Subcentimeter mediastinal and hilar lymph nodes noted. The thoracic aorta appears unremarkable, without evidence of aneurysm. There is no pericardial effusion. There is a 4-5 mm calculus in the left ureterovesical junction (axial image 256/303) with left mild hydroureteronephrosis and mild left perinephric/ periureteric fat stranding. Also seen is a 2-3 mm nonobstructing calculus in the left distal ureter (axial image 252/303). Air loculi are seen in the left upper pole calyx. There is diffuse fatty infiltration of the liver. The gallbladder, pancreas, spleen and adrenals appear unremarkable on this non-contrast study. No evidence of bowel dilatation. The appendix is not definitely visualized; however, there are no inflammatory changes in the right lower quadrant. Fluid filled cecum and proximal ascending colon, demonstrating small air fluid levels, non-specific. The urinary bladder is not well distended. A punctate vesical calculus is seen adjacent to the left ureterovesical junction (axial image 262/303). . The abdominal aorta and its branches appear unremarkable. Mild degenerative changes are identified in the spine. Impression: No evidence of focal consolidation, pleural effusion or pneumothorax. 4-5 mm calculus in the left ureterovesical junction with left mild hydroureteronephrosis. Left perinephric/periureteric fat stranding and air loculi in the left upper pole calyx, could be related to prior intervention, the possibility of urinary tract infection cannot be excluded. Recommend clinical/laboratory correlation. 2-3 mm nonobstructing calculus in the left distal ureter. Punctate vesical calculus. Other findings as described above. Report Electronically Signed By: Yogesh Hannon 08/11/2024 1:21:23 AM Medications / Prescriptions Medications or Prescriptions considered but not ordered:: none Medication administrations:: Medication Administration History Sodium Chloride (Ns) 1,000 mls @ 250 mls/hr IV .Q4H DAVID Stop: 09/10/24 01:43 Last Admin: 08/11/24 05:54 Dose: 250 mls/hr Documented By: Infusion: 08/11/24 05:53 Dose: Infused Documented By: Admin: 08/11/24 01:49 Dose: 250 mls/hr Documented By: BD Meropenem 2,000 mg/ Sodium (Chloride) 50 mls @ 100 mls/hr IV Q8HR DAVID Stop: 08/18/24 05:59 Vancomycin HCl 1,000 mg/ (Sodium Chloride) 250 mls @ 150 mls/hr IV BID DAVID Stop: 08/18/24 08:59 Vancomycin HCl 1,000 mg/ (Sodium Chloride) 250 mls @ 150 mls/hr IV X1 ONE Stop: 08/11/24 06:09 Last Admin: 08/11/24 04:49 Dose: 150 mls/hr Documented By: BD Sodium Chloride (Ns) 500 mls @ 999 mls/hr IV .Q31M ONE Stop: 08/11/24 06:07 Last Infusion: 08/11/24 05:55 Dose: Infused Documented By: Admin: 08/11/24 05:39 Dose: 999 mls/hr Documented By: BD Discontinued Medications Acetaminophen (Acetaminophen 500 Mg Tablet) 1,000 mg PO X1 ONE Stop: 08/10/24 22:20 Last Admin: 08/10/24 22:25 Dose: 1,000 mg Documented By: BD Acetaminophen (Acetaminophen 500 Mg Tablet) 1,000 mg PO X1 ONE Stop: 08/11/24 02:29 Last Admin: 08/11/24 02:39 Dose: 1,000 mg Documented By: BD Sodium Chloride (Ns) 1,796 mls @ 1,796 mls/hr IV .Q1H ONE Stop: 08/10/24 23:16 Last Infusion: 08/10/24 23:21 Dose: Infused Documented By: Admin: 08/10/24 22:25 Dose: 1,796 mls/hr Documented By: BD Sodium Chloride (Ns) 1,000 mls @ 999 mls/hr IV .Q1H1M ONE Stop: 08/11/24 00:17 Last Infusion: 08/11/24 00:10 Dose: Infused Documented By: Admin: 08/10/24 23:21 Dose: 999 mls/hr Documented By: BD Ceftriaxone Sodium/Dextrose (Rocephin/D5w 1gm Iv Premix) 1 gm in 50 mls @ 100 mls/hr IV X1 ONE Stop: 08/10/24 23:53 Last Infusion: 08/11/24 00:38 Dose: Infused Documented By: Admin: 08/10/24 23:48 Dose: 100 mls/hr Documented By: BD Potassium Chloride (Kcl Ivpb) 10 meq in 100 mls @ 100 mls/hr IV X1 ONE Stop: 08/11/24 00:48 Last Infusion: 08/11/24 02:00 Dose: Infused Documented By: Admin: 08/11/24 00:36 Dose: 100 mls/hr Documented By: BD Meropenem 1,000 mg/ Sodium (Chloride) 50 mls @ 100 mls/hr IV X1 ONE Stop: 08/11/24 01:31 Last Infusion: 08/11/24 02:20 Dose: Infused Documented By: Admin: 08/11/24 01:49 Dose: 100 mls/hr Documented By: BD Sodium Chloride (Ns) 500 mls @ 999 mls/hr IV .Q31M ONE Stop: 08/11/24 04:26 Last Infusion: 08/11/24 04:58 Dose: Infused Documented By: Admin: 08/11/24 04:01 Dose: 999 mls/hr Documented By: BD Morphine Sulfate (Morphine Sulf Inj 10 Mg/Ml Vial) 2 mg IVP X1 ONE Stop: 08/10/24 23:28 Last Admin: 08/10/24 23:48 Dose: 2 mg Documented By: BD Morphine Sulfate (Morphine Sulf Inj 10 Mg/Ml Vial) 2 mg IVP X1 ONE Stop: 08/11/24 00:05 Last Admin: 08/11/24 03:42 Dose: 2 mg Documented By: BD see above Consultations Consultation(s) initiated? (list below): Yes Diagnosis Differential diagnosis abdominal pain: other (sepsis, bacteremia, pneumonia, Influenza, viral syndrome) Most likely diagnosis given after review of the tests above:: Infected kidney stone sepsis eczematous pyelonephritis Admission Indicated Admission indicated?: not indicated (Patient pending transfer no urology services.) Explain why admission is indicated or not indicated:: Pending transfer, no urology services Admission Request Was there a request for admission?: No Disposition Plan Disposition Plan: other (specify) (Signed out to Dr. Anderson at 0600 pending transfer for urology.) Critical Care Time Critical Care Time Critical Care Time: Yes Total Critical Care Time (min.): 60 Attestation: The high probability of sudden, clinically significant deterioration in the patient?s condition required the highest level of my preparedness to intervene urgently. The services I provided to this patient were to treat and/or prevent clinically significant deterioration. Services included the following: chart data review, reviewing nursing notes and/or old charts, documentation time, community resource consultant collaboration regarding findings and treatment options, medication orders and management, direct patient care, vital sign assessments and ordering, interpreting and reviewing diagnostic studies and lab tests. Aggregate critical care time includes only time during which I was engaged in work directly related to the patient?s care, as described above, whether at bedside or elsewhere in the Emergency Department. It did not include time spent performing other reported procedures or the services of residents, students, nurses or physician assistants. Discharge Plan Plan Patient condition on transfer: Benefits outweigh risks Prescriptions/Referrals Prescriptions/Med Rec: No Action tamsulosin [Flomax] 0.4 mg capsule 0.4 mg PO QDAY 4 Days Qty: 4 0RF acetaminophen [Tylenol] 325 mg tablet 325 mg PO Q6H 7 Days Qty: 28 0RF ibuprofen [Motrin IB] 200 mg capsule 600 mg PO Q6H PRN (Reason: pain (scale score 1-3)) 3 Days Qty: 20 0RF Referrals: No Primary/Family,Physician [Primary Care Provider] - In 1 week Problem List Clinical Impression: Kidney stone, UTI (urinary tract infection), Sepsis, Hypokalemia, Emphysematous pyelonephritis, Acute renal failure Patient/Caregiver Discharge Instructions Print Language: Mongolian
[2024-08-10 21:50] LABS: INR 1.7 (0.9-1.3); Partial Thromboplastin Time 47.1 Seconds (22.0-36.0); Prothrombin Time 17.8 Seconds (9.0-12.2)
[2024-08-10 21:59] LABS: B-Type Natriuretic Peptide 68 pg/mL (0-100)
[2024-08-10 22:06] LABS: Alanine Aminotransferase 38 U/L (10-49); Albumin, Serum 3.9 gm/dL (3.5-5.0); Albumin/Globulin Ratio 1.6 (1.2-2.2); Alkaline Phosphatase 96 U/L (46-116); Anion Gap 15 (7-16); Aspartate Amino Transferase 44 U/L (0-34); BUN/Creatinine Ratio 15 Ratio (12-20); Bilirubin,Total 1.1 mg/dL (0.3-1.2); Blood Urea Nitrogen 48 mg/dL (9-23); Calcium 8.2 mg/dL (8.3-10.6); Calcium (Corrected) 8.3 mg/dL (8.5-10.1); Carbon Dioxide 17.1 mMol/L (20.0-31.0); Chloride 101 mMol/L (98-107); Creatinine (Component) 3.3 mg/dL (0.6-1.3); Estimated Creatinine Clearance 18.9 mL/min (>60); Globulin 2.5 gm/dL (2.3-3.5); Glucose 126 mg/dL (74-106); LDH (Lactate Dehydrogenase) 308 U/L (120-246); Lipase 23 U/L (12-53); Magnesium 1.7 mg/dL (1.6-2.6); Osmolality,Calculated 280 (275-295); Potassium 3.1 mMol/L (3.4-5.1); Sodium 133 mMol/L (136-145); Total Protein 6.4 gm/dL (5.7-8.2); eGFR 18 See Note
[2024-08-10 22:09] LABS: Troponin I 0.139 ng/mL (0.0-0.045)
[2024-08-10 22:10] LABS: Platelet Count 47 Thou/mm3 (140-440)
[2024-08-10 22:11] LABS: Slide Review Platelets confirmed
[2024-08-10 22:14] LABS: Clarity,Urine Turbid (Clear/Hazy)
[2024-08-10 22:25] VITALS: TEMP 37.9
[2024-08-10] MEDS: ACETAMINOPHEN 500 MG TABLET 1000 MG PO (22:25)
[2024-08-10] MEDS: SODIUM CHLORIDE 0.9% 1796 ML IV (22:25)
[2024-08-10 22:34] LABS: Path Review Blood Smear Sent to Pathologist
[2024-08-10 22:39] LABS: Procalcitonin > 50.00 ng/ml (0.0-0.49)
[2024-08-10 23:12] VITALS: BP 84/60; PULSE 140; RESP 17; TEMP 38.4; O2SAT 100
[2024-08-10] MEDS: SODIUM CHLORIDE 0.9% 1000 ML 1,000 ML 999 ML IV (23:21)
[2024-08-10 23:24] VITALS: TEMP 38.4
--- NOTE | 2024-08-10 23:24 | XR_ITS ---
Examination: CT chest, without intravenous contrast. CT abdomen, without intravenous contrast. CT pelvis, without intravenous contrast. 2-D sagittal and coronal reconstructions. 3-D reconstructions. Date and time of exam:August 11, 2024 at 0003 hours Comparison August 08, 2024 INDICATIONS: Sepsis alert, generalized abdominal pain, history kidney stones CTDI vol (mgy) 6.79 DLP (MGycm)421 Technique: Multiple CT images, 3.0 mm slice thickness, obtained chest, abdomen, pelvis, with the high-resolution 64 slice scanner.. Sagittal and coronal 2-D reconstructions are obtained. 3-D reconstructions Low dose protocols were performed. One or more of the following dose reduction techniques were used; automated exposure control, adjustment of the mA and/or KV according to patient size, use of iterative reconstruction technique. Findings: No thoracic aortic aneurysm dilatation Pulmonary artery segments are not enlarged No paratracheal tracheobronchial or bronchopulmonary adenopathy Calcified granuloma in the left lower lobe Fatty infiltration throughout the liver no focal liver or splenic lesions No gallstones No pancreatic mass Mild left hydronephrosis, 4 mm left ureterovesical junction calculus, 3 mm distal left ureteral calculus Also 3 mm calculus in the urinary bladder IMPRESSION: Mild left hydronephrosis, 4 mm left ureterovesical junction calculus 3 mm distal left ureteral calculus 3 mm urinary bladder calculus
[2024-08-10 23:40] LABS: HCG Qualitative,Urine Negative
[2024-08-10] MEDS: MORPHINE SULF INJ 10 MG/ML VIAL 2 MG IVP (23:48)
[2024-08-10] MEDS: cefTRIAXone/D5w 1gm IV premix 1 GM/50 ML BAG IV (23:48)
[2024-08-11] VITALS (22 sets, daily range): BP systolic 97–123; BP diastolic 60–87; PULSE 110–143; RESP 11–27; TEMP 37.3–38.7; O2SAT 89–100
[2024-08-11 00:27] LABS: Reflex Lactate? Y
[2024-08-11 00:36] LABS: Lactic Acid, 3 HR 2.2 mMol/L (0.4-2.0)
[2024-08-11] MEDS: POTASSIUM CHL 10 mEq IVPB 10 MEQ/100 ML BAG 100 MEQ IV (00:36)
[2024-08-11 00:57] LABS: Anion Gap 12 (7-16); BUN/Creatinine Ratio 17 Ratio (12-20); Blood Urea Nitrogen 42 mg/dL (9-23); Calcium 7.1 mg/dL (8.3-10.6); Carbon Dioxide 15.7 mMol/L (20.0-31.0); Chloride 110 mMol/L (98-107); Creatinine (Component) 2.5 mg/dL (0.6-1.3); Glucose 103 mg/dL (74-106); Osmolality,Calculated 286 (275-295); Potassium 3.6 mMol/L (3.4-5.1); Sodium 138 mMol/L (136-145); eGFR 25 See Note
[2024-08-11 00:58] LABS: Troponin I 0.123 ng/mL (0.0-0.045)
--- NOTE | 2024-08-11 01:21 | PRELIM_ITS ---
CT scan of the chest, abdomen and pelvis without intravenous contrast (axial sections with sagittal and coronal reformats) August 11, 2024 0003 hours Clinical History: Sepsis, possible renal stone, acute renal failure No prior study is available for comparison. Findings: Subpleural calcified granulomas are seen in left lower lobe. Mild subpleural scarring with bibasilar dependent atelectasis is present, left greater than right. No evidence of focal consolidation, pleural effusion or pneumothorax. The mediastinum demonstrates no evidence of mass. Subcentimeter mediastinal and hilar lymph nodes noted. The thoracic aorta appears unremarkable, without evidence of aneurysm. There is no pericardial effusion. There is a 4-5 mm calculus in the left ureterovesical junction (axial image 256/303) with left mild hydroureteronephrosis and mild left perinephric/ periureteric fat stranding. Also seen is a 2-3 mm nonobstructing calculus in the left distal ureter (axial image 252/303). Air loculi are seen in the left upper pole calyx. There is diffuse fatty infiltration of the liver. The gallbladder, pancreas, spleen and adrenals appear unremarkable on this non-contrast study. No evidence of bowel dilatation. The appendix is not definitely visualized; however, there are no inflammatory changes in the right lower quadrant. Fluid filled cecum and proximal ascending colon, demonstrating small air fluid levels, non-specific. The urinary bladder is not well distended. A punctate vesical calculus is seen adjacent to the left ureterovesical junction (axial image 262/303). . The abdominal aorta and its branches appear unremarkable. Mild degenerative changes are identified in the spine. Impression: No evidence of focal consolidation, pleural effusion or pneumothorax. 4-5 mm calculus in the left ureterovesical junction with left mild hydroureteronephrosis. Left perinephric/periureteric fat stranding and air loculi in the left upper pole calyx, could be related to prior intervention, the possibility of urinary tract infection cannot be excluded. Recommend clinical/la boratory correlation. 2-3 mm nonobstructing calculus in the left distal ureter. Punctate vesical calculus. Other findings as described above. Report Electronically Signed By: Yogesh Hannon 08/11/2024 1:21:23 AM [EST]
[2024-08-11] MEDS: SODIUM CHLORIDE 0.9% 1000 ML 1,000 ML 250 ML IV ×2 (01:49→05:54)
[2024-08-11] MEDS: MEROPENEM INJ 1,000 MG in SODIUM CHLORIDE 0.9% (Popper) 50 ML 100 MG IV (01:49)
--- NOTE | 2024-08-11 02:00 | PC.NURSE ---
[id number] [facility] CONTACTED T SENT.
[2024-08-11] MEDS: ACETAMINOPHEN 500 MG TABLET 1000 MG PO (02:39)
--- NOTE | 2024-08-11 03:33 | PC.NURSE ---
0332 CALLED [facility] FOR UPDATE. PT STILL IN QUE.
[2024-08-11] MEDS: MORPHINE SULF INJ 10 MG/ML VIAL 2 MG IVP (03:42)
--- NOTE | 2024-08-11 03:49 | PC.NURSE ---
rakan SP83 ENA PT WWNTING TO ASK ABOUT BLOOD WORK ADVISED SHOWS INFECTION AND WE HAVE ABX, ALSO SHE IS GOING TO BE TRANSFERED TO ANOTHER FACILITY FOR PYELONEPHRITIS. SHE STATED OK AND HAD NO QUESTIONS
--- NOTE | 2024-08-11 03:59 | PC.NURSE ---
0355 DR WILLETT [facility]
[2024-08-11] MEDS: SODIUM CHLORIDE 0.9% 500 ML 500 ML 999 ML IV ×2 (04:01→05:39)
--- NOTE | 2024-08-11 04:14 | PC.NURSE ---
KING FROM [facility] CALLED BACK AND THEY DO NOT HAVE ANY BEDS AT THIS TIME BUT ARE GOING TO WAIT LIST THIS PT AND SEE IF THEY HAVE A BED AVAILABLE AT 0800 ON 08/11/24. THEY ASK THAT IS WE GIVE THEM A CALL BACK IF WE FIND PLACEMENT FOR THIS PT BEFORE THEY ARE ABLE TO ACCEPT.
[2024-08-11] MEDS: Vancomycin Inj 1,000 MG in SODIUM CHLORIDE 0.9% 250 ML 250 ML 150 MG IV (04:49)
--- NOTE | 2024-08-11 05:28 | PC.NURSE ---
perAinsley dong change rate lr 500 ml/hr as he was concerned with b/p of 99/63
--- NOTE | 2024-08-11 07:19 | PC.CC ---
Addendum entered by Carlos Brooke RN 08/11/24 11:04: 1104 called [facility], spoke to Clifton and informed pickup time is 1200. Addendum entered by Carlos Brooke RN 08/11/24 11:03: 1102 called ED charge nurse and informed continuous pickling line pickler 1200, number to call for report is on tracker. Addendum entered by Carlos Brooke RN 08/11/24 11:00: 1057 sent paperwork to [facility] through [employer]. Called [facility], spoke to and set up the transport. The continuous pickling line pickler time is 1200. 1050 transfer packet is complete with CD inside including all signatures. Transfer packet given to charge nurse and number to call for report is on tracker. Addendum entered by Carlos Brooke RN 08/11/24 10:15: 1013 received call from Clifton at [facility] that she has the bed. Pt is going to [facility]. Room 326. Number for report is [phone]. Addendum entered by Carlos Brooke RN 08/11/24 08:58: 0856 called [facility], spoke to Clifton for update. She stated pt is accepted to [facility]. Accepted by Dr. Sanders, now pending bed. Addendum entered by Carlos Brooke RN 08/11/24 08:28: 0821 received call from Clinton at [facility], he stated he has his hospitalist Dr. Carmen on the line for peer to peer and want me to connect Dr. Anderson. Conference call connected. Original Note: 0736 called [facility], spoke to Clinton for update. He stated it's pending MD review. [address] Morrow's note, I found that [facility] declined the pt and [facility] is reviewing the case. 0719 spoke to ED charge nurse, pt needs to be transferred for urology services. Pt had 4 mm left ureterovesical junction calculus 3 mm distal left ureteral calculus, 3 mm urinary bladder calculus.
[2024-08-11] MEDS: MEROPENEM INJ 500 MG in SODIUM CHLORIDE 0.9% (Popper) 50 ML 100 MG IV (08:52)
--- NOTE | 2024-08-11 09:53 | PD.EDADDENDU ---
Emergency Room Addendum Addendum Narrative: 0600: Care assumed from Dr. Morrow, the previous shift emergency physician. Past medical, surgical, social and family history reviewed. Vitals and home medications reviewed. I will assume the care of the patient at this time, pending transfer for urology services. Please refer to the emergency department record for history and examination from initial visit.?The following addendum documentation note is intended to reflect any pending information, findings, or radiology results not included in the patient?s initial chart. Nursing notes reviewed by me. Vital signs reviewed by me. [place] medical records reviewed by me. 0824: I spoke with transfer nurse, hospitalist, urologist at [facility] in [place]. Discussed patients PMHx, HPI, ED course, exam findings, labs, and radiology results. Patient has been accepted for transfer by Dr. Sanders with urology consulting. 1210: EMS here to transfer patient. Patient was transferred in stable condition.
--- NOTE | 2024-08-11 10:08 | PC.NURSE ---
Per Lab, Patient has GRAM NEGATIVE RODS in Blood Culture. ER MD Notified
[2024-08-11] MEDS: ACETAMINOPHEN IVPB 1,000 MG/100 ML VIAL 250 MG IV (10:13)
--- NOTE | 2024-08-11 10:55 | PC.NURSE ---
Report called to [facility], Room 326. spoke with RN, Marcos Hoover to give patient report. PH: [phone]
--- NOTE | 2024-08-11 12:06 | PC.NURSE ---
Pt report given to [facility]. Pt ambulated to stretcher without incidence.
== END 2024-08-11 12:13 | disposition short-term general hospital (02) ==
PROVIDERS: Emergency Provider Emergency Medicine
DX: A41.9 Sepsis, unspecified organism (principal); N13.6 Pyonephrosis; N17.9 Acute kidney failure, unspecified; E87.6 Hypokalemia; N21.0 Calculus in bladder; R00.0 Tachycardia, unspecified; Z75.1 Person awaiting admission to adequate facility elsewhere
CPT/HCPCS: 36415; 71045; 71250; 74176; 80048; 80053; 81001; 81025; 83605; 83615; 83690; 83735; 83880; 84100; 84145; 84484; 85025; 85610; 85730; 87040; 87077; 87086; 87186; 87400; 87811; 93005; 96361; 96365; 96366; 96367; 96375; 99291; J0131; J0696; J2185; J2270; J3370; J3480; J7030; J7040; J7050; A9270

== ENCOUNTER → 2024-10-16 | Outpatient (CLI) | payer MEDICAID, SELFPAY ==
--- NOTE | 2024-10-16 15:54 | XR_ITS ---
Examination: Abdomen AP single view Technique: AP portable supine abdomen, single view Date and time: October 16, 2024, 1755 hours INDICATIONS: History left ureteral stent, left hydronephrosis distal left ureteral calculi and CT stone study August 08, 2024 FINDINGS: Left ureteral stent satisfactory position No renal or ureteral calculi depicted IMPRESSION: Left ureteral stent satisfactory position No renal or ureteral calculi noted
== END | disposition home or self-care (01) ==
LOC: CDIM 15:48
PROVIDERS: Referring Provider Surgery; Visit Provider Surgery
DX: N20.1 Calculus of ureter (principal)
CPT/HCPCS: 74018